=== PATIENT | female | born 1940 | race Two or more races ===

== ENCOUNTER → 2018-02-09 | Outpatient (CLI) | payer OTHER | LOC: CIMAGING 16:32 | PROVIDERS: ATTEND Family Medicine | DX: M16.7 Other unilateral secondary osteoarthritis of hip (principal); M87.88 Other osteonecrosis, other site; Z85.51 Personal history of malignant neoplasm of bladder | CPT/HCPCS: 73521-PO ==

== ENCOUNTER 2018-05-02 07:15 | Inpatient (IN) | payer OTHER ==
[2018-05-03] MEDS ORDERED: TRANEXAMIC ACID 1,000 MG in NS 100 ML IV ONE (06:00)
[2018-05-03] MEDS ORDERED: ROPIVACAINE 0.2% 80 MG, EPINEPHrine 0.2 MG, KETOROLAC TROMETHAMINE 30 MG in SYRINGE 0 ML IU ONE (06:00)
[2018-05-03] MEDS ORDERED: ceFAZolin 2 GM/DEXTROSE 100 ML IV ONE (06:00)
[2018-05-03] MEDS ORDERED: FAMOTIDINE 20 MG TAB PO ONE (06:03)
[2018-05-03] MEDS ORDERED: GABAPENTIN 300 MG CAP PO ONE (06:03)
[2018-05-03] MEDS ORDERED: ONDANSETRON 4 MG/2 ML VIAL IVP ONE (06:03)
[2018-05-03] MEDS ORDERED: ACETAMINOPHEN 325 MG TAB PO ONE (06:03)
[2018-05-03] MEDS ORDERED: DEXAMETHASONE 4 MG/ML VIAL IVP ONE (06:03)
[2018-05-03] MEDS ORDERED: LR 1,000 ML IV ONE (06:06)
[2018-05-03] MEDS ORDERED: ceFAZolin 1 GM/5 ML SYR ONE (06:33)
--- NOTE | 2018-05-03 06:55 | PDHPUP ---
History & Physical Update H&P update statement: This history and physical update is based on an assessment of the patient which was completed after admission or registration (within 24 hours), but prior to the surgery/procedure. H&P update: H&P reviewed & patient examined
[2018-05-03] MEDS ORDERED: MIDAZOLAM 2 MG/2 ML VIAL IVP ONE (07:01)
--- NOTE | 2018-05-03 07:03 | PDANEPAE ---
ANE History of Present Illness 78 year old with left hihp arthritis ANE Past Medical History - Cardiovascular History Hx Hypertension: Yes Hx Arrhythmias: No Hx Chest Pain: No Hx Coronary Artery / Peripheral Vascular Disease: No Hx CHF / Valvular Disease: No Hx Palpitations: No Cardiovascular History Comment: hx of htn, no medications currently - Pulmonary History Hx COPD: No Hx Asthma/Reactive Airway Disease: No Hx Recent Upper Respiratory Infection: No Hx Oxygen in Use at Home: No Hx Sleep Apnea: No Sleep Apnea Screening Result - Last Documented: Negative - Neurologic History Hx Cerebrovascular Accident: No Hx Seizures: No Hx Dementia: No - Endocrine History Hx Diabetes: No - Renal History Hx Renal Disorders: Yes Renal History Comment: hx of bladder ca. right urostomy 1989 - Liver History Hx Hepatic Disorders: No - Neurological & Psychiatric Hx Hx Neurological and Psychiatric Disorders: No - Cancer History Hx Cancer: Yes Cancer History Comment: bladder ca - Congenital Disorder History Hx Congenital Disorders: No - GI History Hx Gastrointestinal Disorders: No - Other Health History Other Health History: OA - Chronic Pain History Chronic Pain: Yes (left hip) - Surgical History Prior Surgeries: cystectomy 1989 for bladder ca. hysterectomy 1982. left oophorectomy and salpingectomy 1965. appy JADA Review of Systems Review of systems is: negative Review of Systems: - Exercise capacity METS (RN): 4 METS ANE Patient History - Allergies Allergies/Adverse Reactions: iodine Allergy (Verified 04/13/18 16:03) Hives - Home Medications Home medications: home medication list seen and reviewed Home Medications: Ibuprofen [Motrin (*)] 200 mg PO DAILY PRN 04/08/18 [Last Taken 05/01/18] Metoprolol Succinate Xr [Toprol Xl 50 mg (*)] 50 mg PO DAILY 04/08/18 [Last Taken 05/03/18 05:00] Quinapril HCl 20 mg PO DAILY 04/08/18 [Last Taken 05/02/18] CeleBREX 200 mg PO DAILY 05/03/18 [Last Taken 05/02/18] - NPO status NPO Status: no food or drink >8 hours NPO Since - Liquids (Date): 05/03/18 NPO Since - Liquids (Time): 05:00 NPO Since - Solids (Date): 05/02/18 NPO Since - Solids (Time): 19:00 - Smoking Hx Smoking Status: Former smoker - Alcohol Use Alcohol Use: Rarely - Family Anes Hx Family Hx Anesthesia Complications: none ANE Labs/Vital Signs - Vital Signs Blood Pressure: 144/74 Heart Rate: 78 Respiratory Rate: 16 O2 Sat (%): 95 Height: 160.02 cm Weight: 65.771 kg ANE Physical Exam - Airway Neck exam: FROM Mallampati Score: Class 1 Mouth exam: normal dental/mouth exam - Pulmonary Pulmonary: no respiratory distress - Cardiovascular Cardiovascular: regular rate and rhythym - ASA Status ASA Status: II ANE Anesthesia Plan Anesthesia Plan: spinal
[2018-05-03] MEDS ORDERED: MIDAZOLAM 2 MG/2 ML VIAL ONE (07:06)
[2018-05-03] MEDS ORDERED: fentaNYL 100 MCG/2 ML INJ ONE (07:23)
[2018-05-03] MEDS ORDERED: PROPOFOL/EMULSION 500 MG/50 ML BOTTLE IV ONE (07:24)
[2018-05-03] MEDS ORDERED: fentaNYL 100 MCG/2 ML INJ IVP PRN (08:54)
[2018-05-03] MEDS ORDERED: PROMETHAZINE HCL 25 MG/ML INJ IVP PRN ×2 (08:54→08:57)
[2018-05-03] MEDS ORDERED: ONDANSETRON 4 MG/2 ML VIAL IVP PRN ×2 (08:54→08:57)
[2018-05-03] MEDS ORDERED: NALOXONE HCL 0.4 MG/ML INJ IVP PRN (08:54)
--- NOTE | 2018-05-03 08:55 | POSTANESTH ---
Post Anesthetic Evaluation Cardiovascular Status: Normal, Stable Respiratory Status: Normal, Stable Level of Consciousness/Mental Status: Can Participate in Eval, Alert and Oriented Pain Control: Adequate, Prn Tx Ordered Nausea/Vomiting Control: Adequate, Prn Tx Ordered Complications Possibly Related to Anesthesia: None Noted
[2018-05-03] MEDS ORDERED: DIPHENOXYLATE/ATROPINE LOMOTIL 1 TAB PO PRN (08:57)
[2018-05-03] MEDS ORDERED: oxyCODONE IR 5 MG TAB PO PRN (08:57)
[2018-05-03] MEDS ORDERED: LACTULOSE 20 GM/30 ML UDCUP PO PRN (08:57)
[2018-05-03] MEDS ORDERED: NS 500 ML IV PRN (08:57)
[2018-05-03] MEDS ORDERED: ONDANSETRON DISINTEGRATING 4 MG TAB PO PRN (08:57)
[2018-05-03] MEDS ORDERED: METOCLOPRAMIDE 10 MG/2 ML VIAL IVP PRN (08:57)
[2018-05-03] MEDS ORDERED: diphenhydrAMINE 25 MG CAP PO PRN (08:57)
[2018-05-03] MEDS ORDERED: CYCLOBENZAPRINE 10 MG TAB PO PRN (08:57)
[2018-05-03] MEDS ORDERED: POLYETHYLENE GLYCOL 3350 17 GM PKT PO PRN (08:57)
[2018-05-03] MEDS ORDERED: BISACODYL 10 MG SUPP PR PRN (08:57)
[2018-05-03] MEDS ORDERED: MAGNESIUM HYDROXIDE 30 ML UDCUP PO PRN (08:57)
[2018-05-03] MEDS ORDERED: PROMETHAZINE HCL 25 MG SUPPR PR PRN (08:57)
[2018-05-03] MEDS ORDERED: TEMAZEPAM 15 MG CAP PO PRN (08:57)
[2018-05-03] MEDS ORDERED: LR 1,000 ML IV SCH (09:00)
--- NOTE | 2018-05-03 09:08 | POSTOPPROG ---
Post Op Note Date of Operation: 05/03/18 Surgeon: Deepak Healy Brick Layer: Farzana Anesthesiologist: Dr. Treviño warm Anesthesia: IV Sedation, Spinal Post-op Diagnosis: Left hip severe degenerative arthritis Procedure: Left total hip arthroplasty Inf/Abcess present in the surg proc area at time of surgery?: No EBL: 100-500
--- NOTE | 2018-05-03 09:30 | GOP ---
[f rep st] OPERATIVE REPORT DATE OF OPERATION: 05/03/2018 SURGEON: Deepak Healy MD PARTS REMOVER: Jason Hampton. Matt Bansal. ANESTHESIA: Combination of Marcaine, spinal, and IV sedation. ANESTHESIOLOGIST: Dr. Rae Musa. PREOPERATIVE DIAGNOSIS: Left hip severe degenerative arthritis. POSTOPERATIVE DIAGNOSIS: Left hip severe degenerative arthritis. PROCEDURE PERFORMED: 05/03/2018, left total hip arthroplasty, ceramic femoral head on highly cross-l inked polyethylene cup liner. FINDINGS: ESTIMATED BLOOD LOSS: About 300 mL. DESCRIPTION OF PROCEDURE: The patient was given 2 g of IV Ancef preoperatively within 60 minutes of surgery. She also received IV tranexamic acid at a dose of 1000 mg. She was placed on the operating room table and given spinal anesthesia with Marcaine by Dr. Musa. She was then placed supine and gi rowdy IV sedation. A Main catheter was not used. She wore a RAE stocking and SCD on the nonoperative leg. She was rolled to the right lateral decubitus position. The position was secured with the peg board table attachment. An axillary roll was used, and all pressure points were carefully padded. I was careful to lock her pelvis in a vertical position. Her perineum was isolated with plastic adhes hannah drapes. The left hip and left lower extremity were prepped with ChloraPrep. They were draped fr ee using sterile sheets, stockinette, and Ioban plastic drapes. The [employer] time-out was performed to verify the correct surgical side and site and the correct patient identity. The [place] time-out was also performed. I made a 5-inch straight oblique posterolateral hip skin incision. The subcutaneous tissues were sha rply divided, and hemostasis was obtained using electrocautery. The fascia michael was identified and s plit along the axis of its fibers. I curved posteriorly and proximally, and split the fascia of glut eus abbe and bluntly split the muscle fibers in line with their orientation. The Charnley self-re taining retractor was inserted. Her sciatic nerve was located, partially exposed, and protected thro ughout the procedure. The external rotators and the posterior hip capsule were divided as separate l rivas at the base of the femoral neck, tagged, and reflected posteriorly. A smooth 8-inch Steinmann pin was inserted vertically into the ilium, superior to the acetabulum. An 8-inch drill bit was inse rted vertically into the greater trochanter and parallel to the first pin. The distance between the 2 was measured for leg length reference. Her femoral head was dislocated posteriorly. Severe degene rative changes were present on the femoral head. The femoral neck was osteotomized at the appropriat e level and inclination. I was careful to preserve all the posterior capsule and most of the anterior capsule. The remnant of her badly damaged labrum was excised. I prepared the femur first. This allowed me to juvenile court judge the amount of natural femoral neck anteversion. This, in turn, allowed me to later determine the correct amount of cup anteversion. She had approx imately 15 degrees of natural femoral neck anteversion. The canal was opened laterally with a box ch sabrina. I power reamed and hand broached sequentially up to a size 4. The size 4 broach with standard offset was used as a trial stem. I was careful to lateralize adequately. Appropriate retractors were inserted to expose the acetabulum. The acetabulum was reamed sequentiall y up to 51 mm. I selected the 52 mm Kiara Tritanium Trident II cluster hole hemispherical shell. This was tapped securely into place with the proper degree of inclination anteversion. I used the tr ansverse acetabular ligament and other acetabular bony landmarks to help me properly orient the cup. I performed a series of trial reductions to determine length and stability. I felt that the size 4 s tandard offset stem with the -2.5 mm neck and a 36 mm head with a 10 degree lip trial liner gave me shemar mcgraw proper combination of appropriate length and good anterior and posterior stability. She was about 5 mm short preoperatively, and I was intentionally lengthening her. I took an intraoperative cross-table AP pelvis x-ray. This confirmed proper sizing and position of t he femoral component and the acetabular component. Leg lengths were appropriate. The 10 degree lip Kiara X3 highly cross-linked polyethylene liner was inserted and tapped securely into place. I chose the Kiara Accolade II stem in a size 4 with standard offset. This was inserte d press-fit and was very tight. I did 1 final trial reduction, confirmed that the -2.5 mm neck lengt h with a 36 mm head was the proper combination. The Kiara Biolox Delta ceramic head with an outsid e diameter of 36 mm and a neck length of -2.5 mm was tapped securely onto the clean trunnion. The ac etabulum was irrigated and cleaned, and the hip was reduced 1 final time. She had excellent anterior and posterior stability and appropriate lengthening. 40 mL of the joint anesthetic cocktail was injected into the capsule, the deep musculature, and the s ubcutaneous tissues around the skin edges. The joint was thoroughly irrigated 1 final time with sali ne. I did not use the Betadine solution for irrigation because she is allergic to iodine from IVP dy e. Her sciatic nerve was reinspected and looked unharmed. The external rotators and the posterior h ip capsule were repaired in separate layers with #2 FiberWire sutures through drill holes in the grea ter trochanter. This provided a strong posterior capsular and external rotator repair. The fascia l jarad was closed first with 2 [id number] #2 FiberWire sutures followed by a running #2 barbed Ethi con Stratafix PDO suture. Subcutaneous tissues were closed with a running 0 barbed Ethicon Stratafix Monoderm suture. The skin was closed with a running 3-0 barbed Ethicon Stratafix Monoderm subcuticu lar suture. The skin edges were reapproximated and sealed with Dermabond glue. The wound was covere d with a large Mepilex waterproof dressing. The Mepilex sacral dressing was also applied. A long-leg RAE stocking and SCD were applied to her left lower extremity. An abduction pillow was pl aced between her knees. She was awakened from anesthesia and rolled to the supine position on her [facility]. She was taken to PACU in satisfactory condition. There were no recognized intraopera tive complications. COUNT: The sponge and needle count were correct on 2 occasions. I used a Harwood Tritanium Trident II hemispherical press-fit cluster hole acetabular shell with an o utside diameter of 52 mm. The liner was a Harwood X3 10-degree highly cross-linked liner with an ins bud diameter of 36 mm. The femoral component was a standard offset Accolade II stem in a size 4 and press-fit. The femoral head was a Kiara Biolox Delta ceramic head with a -2.5 mm neck length and a 36 mm outside diameter. Jason Hampton and Matt Bansal acted as surgical assistants. Their assistance was a medical necess ity for safe completion of the procedure. /[id number]/MODL
[2018-05-03] MEDS: SENNOSIDES/DOCUSATE SODIUM TAB PO SCH ×2 (11:03→21:32)
[2018-05-03] MEDS: METOPROLOL SUCCINATE XR 50 MG TAB PO SCH (11:03)
[2018-05-03] MEDS: FERROUS SULFATE 140 MG TAB.ER PO SCH (11:03)
[2018-05-03] MEDS: LISINOPRIL 20 MG TAB PO SCH (11:04)
[2018-05-03] MEDS: KETOROLAC 15 MG/1 ML SDV IVP SCH ×2 (11:51→17:47)
[2018-05-03] MEDS: ACETAMINOPHEN 325 MG TAB PO SCH ×2 (11:51→17:46)
[2018-05-03] MEDS: ceFAZolin 2 GM/DEXTROSE 100 ML IV SCH ×2 (13:41→21:32)
--- NOTE | 2018-05-03 15:35 | PDMN ---
Medical Necessity Medical necessity: IP surgery per [facility] cpt 43501 L ETHEL
[2018-05-03] MEDS: ASPIRIN 325 MG TAB PO SCH (21:32)
[2018-05-03] MEDS: FAMOTIDINE 20 MG TAB PO SCH (21:32)
[2018-05-04] MEDS: ACETAMINOPHEN 325 MG TAB PO SCH ×2 (00:10→05:57)
[2018-05-04] MEDS: KETOROLAC 15 MG/1 ML SDV IVP SCH ×2 (00:11→05:57)
[2018-05-04 08:02] VITALS: BP 111/60
--- NOTE | 2018-05-04 08:26 | POSTOPPROG ---
Post Op Note Date of Operation: 05/04/18 Surgeon: Deepak Hyde [place] Inf/Abcess present in the surg proc area at time of surgery?: No
--- NOTE | 2018-05-04 08:27 | SOAPPROG ---
SOAP Progress Note Assessment/Plan: Assessment: Afebrile. Awake and alert. Very little pain. She has been walking in the [place] and has already done stairs. Her dressing is dry. Mild swelling. Sciatic nerve intact. H&H are good. Postop films look excellent. Plan: Discharge today 05/04/18 08:26 Objective: Vital Signs Temp Pulse Resp BP Pulse Ox 36.8 C 65 16 111/60 94 05/04/18 08:00 05/04/18 08:00 05/04/18 08:00 05/04/18 08:00 05/04/18 08:00 Laboratory Results 05/04/18 04:28 05/03/18 05/04/18 05/05/18 05:59 05:59 05:59 Intake Total 1735 Output Total 1600 Balance 135 ICD10 Worksheet Patient Problems: Problems Problem Status Onset Osteoarthritis of left hip Acute
--- NOTE | 2018-05-04 08:40 | GDS ---
[f rep st] DISCHARGE SUMMARY ADMISSION DIAGNOSIS: Left hip, severe arthritis. DISCHARGE DIAGNOSIS: Left hip, severe arthritis. OPERATION PERFORMED: 05/03/2018, a left total hip arthroplasty, ceramic femoral head on highly cross -linked polyethylene cup. POSTOPERATIVE COMPLICATIONS: None. CONDITION ON DISCHARGE: Improved. DESCRIPTION OF HOSPITAL COURSE: The patient was admitted to the hospital on the morning of surgery. Her admission white blood cell count was 9910. Electrolytes, BUN and creatinine were normal. The s arian day, under a combination of Marcaine, spinal, and IV sedation, she underwent a left total hip art hroplasty. Postoperatively, she was treated with multimodal DVT prophylaxis, including aspirin. On the first postoperative day, her hemoglobin and hematocrit were 11.5 and 34.1. She was seen by Physi betito Therapy and made excellent progress with ambulation and stairs. By the time of discharge, she wa s afebrile, her wound was clean and dry, and she was independent walking with a walker. DISPOSITION: The patient was discharged to her home. She will go to outpatient physical therapy. S he may progress to full weightbearing on the left as tolerated. Use an abduction pillow in bed for 3 weeks. Use RAE stockings for 1 week. She may progress to full weightbearing on the left as tolerat ed. Continue aspirin 325 mg p.o. daily for 21 days. She has prescriptions for Celebrex, tramadol an d oxycodone for pain control. I will see her back in the office on 05/23/2018. If there are any prob lems, she is to call me at the office. /[id number]/MODL
[2018-05-04] MEDS: METOPROLOL SUCCINATE XR 50 MG TAB PO SCH (08:45)
[2018-05-04] MEDS: ASPIRIN 325 MG TAB PO SCH (08:45)
[2018-05-04] MEDS: FERROUS SULFATE 140 MG TAB.ER PO SCH (08:45)
[2018-05-04] MEDS: SENNOSIDES/DOCUSATE SODIUM TAB PO SCH (08:45)
[2018-05-04] MEDS: LISINOPRIL 20 MG TAB PO SCH (08:46)
[2018-05-04] MEDS: FAMOTIDINE 20 MG TAB PO SCH (08:46)
--- NOTE | 2018-05-04 10:20 | ASMTLACE ---
LACE Length of stay for Answers: 1 day current admission Acuity / Level of Answers: Yes Care: Did the patient have an inpatient admission? Comorbidities - select Answers: Any tumor (including all that apply lymphoma or leukemia) Other Notes: L ETHEL, Hypertension # of Emergency department Answers: 0 visits in the last 6 months Score: 7 Date Signed: 05/04/2018 10:19 AM Electronically Signed By:Mayi Landry RN
--- NOTE | 2018-05-04 11:18 | ASDISCHSUM ---
Discharge Information Plan Status:Home with No Needs Medically Cleared to Leave:05/04/2018 Discharge Date:05/04/2018 11:08 AM CM D/C Disposition:Home, Routine, Self-Care ADT D/C Disposition:Home, Routine, Self-Care Projected Discharge Date:05/04/2018 11:08 AM Transportation at D/C:Family Discharge Delay Reason: Follow-Up Date:05/04/2018 11:08 AM Discharge Slot:1 - 8:01 am - 12:00 noon Final Diagnosis:Osteoarthritis left hip, s/p L total hip arthroplasty Placement Information Patient Contact Information Contact Name:WOODY Relationship: Address:[address] Work Phone: City:[place] Alternate Phone: State/Zip Code:[place] [address] Email: Financial Information Financial Class:Medicare Primary Plan Desc:MEDICARE INPATIENT Primary Plan Number:[id number] Secondary Plan Desc:DALI MURRELL POS HMO Secondary Plan Number:[id number] Assessment Information [facility] CM Progress Note CM Note CM Note Notes: Pt admitted for planned left total hip arthroplasty secondary to severe osteoarthritis. History includes bladder cancer, hypertension. Pt lives with her spouse in [place]. Per MD notes, pt to discharge home independently today with no identified needs. PT recommends the use of a front-wheeled walker and outpt therapy. No IM signed, pt admission 24 hrs. Pt to follow up as directed. CM available for any further issues or concerns. Discharge Plan: Home Independently Date Signed: 05/04/2018 10:18 AM Electronically Signed By:Mayi Landry RN BRADE DANIAL Length of stay for Answers: 1 day current admission Acuity / Level of Answers: Yes Care: Did the patient have an inpatient admission? Comorbidities - select Answers: Any tumor (including all that apply lymphoma or leukemia) Other Notes: L ETHEL, Hypertension # of Emergency department Answers: 0 visits in the last 6 months Score: 7 Date Signed: 05/04/2018 10:19 AM Electronically Signed By:Mayi Landry RN Intervention Information
== END 2018-05-04 11:08 | disposition home or self-care (01) | DRG 470 ==
LOC: F3N 05-03 05:37
PROVIDERS: ADMIT Orthopaedic Surgery; ATTEND Orthopaedic Surgery
PROC: 0SRB04Z Replacement of Left Hip Joint with Ceramic on Polyethylene Synthetic Substitute, Open Approach (ICD-10-PCS; principal; 2018-05-03 07:15)
DX: M16.12 Unilateral primary osteoarthritis, left hip (principal); I10 Essential (primary) hypertension; Z85.51 Personal history of malignant neoplasm of bladder
CPT/HCPCS: 97116-GP; 97161-GP; 97165-GO; 97530-GP; 97535-GO; G8978-GP-CJ; G8979-GP-CI; G8980-GP-CI; G8987-GO-CI; G8988-GO-CI; G8989-GO-CI; J0171; J0690; J1100; J1885; J2250; J2405; J2704; J2795; J3010

== ENCOUNTER → 2018-09-12 | Outpatient (CLI) | payer OTHER | LOC: CIMAGING 10:50 | PROVIDERS: ATTEND Family Medicine | DX: Z12.31 Encounter for screening mammogram for malignant neoplasm of breast (principal) ==